=== PATIENT | male | born 1965 | race Caucasian/White ===

== ENCOUNTER 2016-08-01 10:30 | Inpatient (IN) | payer SELFPAY ==
[~2016-08-01] VITALS: Ht 177.8 cm; Wt 68.9 kg
--- NOTE | 2016-08-01 10:55 | PHYS DOC ---
Past Medical History Past Medical History: Alcoholism, Seizure, Schizophrenia, Other Additional Past Medical Histor: seizure w/ withdrawal Past Surgical History: Other Additional Past Surgical Histo: hernia repair Alcohol Use: Heavy Drug Use: None Adult General Chief Complaint Chief Complaint: SEIZURE HPI HPI Patient is a 51 year old male who presents with a seizure while walking to the ER this morning. He states he binge drinks and this morning drank about half a pint of vodka and then decided to walk to the ER. During the course when he is walking the emergency department he had a seizure. He is unsure where he was on this occurred how long it lasted or any other concerns. He states his seizures related to his alcohol use. He also complains of back pain since this been going on for the last week. He is intoxicated and very sleepy at this time having difficulty telling me is full history. He doesn't I any fevers chills nausea vomiting. Review of Systems Review of Systems Constitutional: Denies fever or chills [] Eyes: Denies change in visual acuity, redness, or eye pain [] HENT: Denies nasal congestion or sore throat [] Respiratory: Denies cough or shortness of breath [] Cardiovascular: No additional information not addressed in HPI [] GI: Denies abdominal pain, nausea, vomiting, bloody stools or diarrhea [] : Denies dysuria or hematuria [] Musculoskeletal: Denies any joint pain, positive for back pain. [] Integument: Denies rash or skin lesions [] Neurologic: Denies headache, focal weakness or sensory changes [] Endocrine: Denies polyuria or polydipsia [] Current Medications Current Medications Current Medications Medications (Trade) Dose Ordered Sig/Shira Start Time Stop Time Status Last Admin Dose Admin Sodium Chloride (Iv Sodium Chloride 0.9% 1000ml Bag) 1,000 ml @ 1,000 mls/hr 1X ONCE 08/01/16 12:15 08/01/16 13:14 DC 08/01/16 12:45 1,000 MLS/HR Allergies Allergies Allergies Coded Allergies Type Severity Reaction Last Updated Verified No Known Drug Allergies 09/28/15 No Physical Exam Physical Exam Constitutional: Well developed, well nourished, no acute distress, non-toxic appearence, intoxicated. [] HENT: Normocephalic, atraumatic, bilateral external ears normal, oropharynx moist, no oral exudates, nose normal. [] Eyes: PERRLA, EOMI, conjunctiva normal, no discharge. [] Neck: Normal range of motion, no tenderness, supple, no stridor. [] Cardiovascular:Heart rate regular rhythm, no murmur [] Lungs & Thorax: Bilateral breath sounds clear to auscultation [] Abdomen: Bowel sounds normal, soft, no tenderness, no masses, no pulsatile masses. [] Skin: Warm, dry, no erythema, no rash. [] Back: No tenderness, no CVA tenderness. [] Extremities: No tenderness, no cyanosis, no clubbing, ROM intact, no edema. [] Neurologic: Alert at times and somnolent, normal motor function, normal sensory function, no focal deficits noted. [] Psychologic: Affect normal, judgement normal, mood normal. [] Current Patient Data Vital Signs Vital Signs Date Time Temp Pulse Resp B/P Pulse Ox O2 Delivery O2 Flow Rate FiO2 08/01/16 14:41 80 22 119/68 95 Nasal Cannula 2 08/01/16 10:32 96.5 96.5 Lab Values Laboratory Tests Test 08/01/16 10:50 08/01/16 10:52 08/01/16 11:15 08/01/16 12:35 White Blood Count 7.1x10^3/uL (4.0-11.0) Red Blood Count 5.32x10^6/uL (4.30-5.70) Hemoglobin 16.5g/dL (13.0-17.5) Hematocrit 47.9% (39.0-53.0) Mean Corpuscular Volume 90fL (79-100) Mean Corpuscular Hemoglobin 31pg (25-35) Mean Corpuscular Hemoglobin Concent 34g/dL (31-37) Red Cell Distribution Width 14.8% (11.5-14.5) H Platelet Count 181x10^3/uL (140-400) Neutrophils (%) (Auto) 58% (31-73) Lymphocytes (%) (Auto) 24% (24-48) Monocytes (%) (Auto) 8% (0-9) Eosinophils (%) (Auto) 10% (0-3) H Basophils (%) (Auto) 1% (0-3) Neutrophils # (Auto) 4.1x10^3uL (1.8-7.7) Lymphocytes # (Auto) 1.7x10^3/uL (1.0-4.8) Monocytes # (Auto) 0.6x10^3/uL (0.0-1.1) Eosinophils # (Auto) 0.7x10^3/uL (0.0-0.7) Basophils # (Auto) 0.1x10^3/uL (0.0-0.2) Prothrombin Time 12.5SEC (11.7-14.0) Prothrombin Time INR 1.0 (0.8-1.1) PTT 34SEC (24-38) Sodium Level 138mmol/L (136-145) Potassium Level 4.2mmol/L (3.5-5.1) Chloride Level 100mmol/L (98-107) Carbon Dioxide Level 26mmol/L (21-32) Anion Gap 12 (6-14) Blood Urea Nitrogen 16mg/dL (8-26) Creatinine 1.0mg/dL (0.7-1.3) Estimated GFR (Cockcroft-Gault) 78.5 BUN/Creatinine Ratio 16 (6-20) Glucose Level 87mg/dL (70-99) Calcium Level 8.5mg/dL (8.5-10.1) Total Bilirubin 1.0mg/dL (0.2-1.0) Aspartate Amino Transferase (AST) 90U/L (15-37) H Alanine Aminotransferase (ALT) 57U/L (16-63) Alkaline Phosphatase 90U/L (46-116) Ammonia < 10mcmol/L (11-34) L Total Protein 6.9g/dL (6.4-8.2) Albumin 3.7g/dL (3.4-5.0) Albumin/Globulin Ratio 1.2 (1.0-1.7) Thyroid Stimulating Hormone (TSH) 1.117uIU/mL (0.358-3.74) Salicylates Level 6.5mg/dL (2.8-20.0) Salicylate Last Dose Date Unknown Salicylate Last Dose Time Unknown Acetaminophen Level < 2mcg/ml (10-30) L Acetaminophen Last Dose Date Unknown Acetaminophen Last Dose Time Unknown Ethyl Alcohol Level 322mg/dL (0-10) H Glucose (Fingerstick) 91mg/dL (70-99) Lactic Acid Level 4.0mmol/L (0.4-2.0) *H 3.5mmol/L (0.4-2.0) H Test 08/01/16 14:30 Urine Collection Type Unknown Urine Color Yellow Urine Clarity Clear Urine pH 6.0 Urine Specific [place] <=1.005 Urine Protein Negativemg/dL (NEG-TRACE) Urine Glucose (UA) Negativemg/dL (NEG) Urine Ketones (Stick) Negativemg/dL (NEG) Urine Blood Negative (NEG) Urine Nitrite Negative (NEG) Urine Bilirubin Negative (NEG) Urine Urobilinogen Dipstick 0.2mg/dL (0.2 mg/dL) Urine Leukocyte Esterase Negative (NEG) Urine RBC Occ/HPF (0-2) Urine WBC 1-4/HPF (0-4) Urine Squamous Epithelial Cells Few/LPF Urine Bacteria 0/HPF (0-FEW) Urine Mucus Slight/LPF Urine Opiates Screen Neg (NEG) Urine Methadone Screen Neg (NEG) Urine Barbiturates Neg (NEG) Urine Phencyclidine Screen Neg (NEG) Urine Amphetamine/Methamphetamine Neg (NEG) Urine Benzodiazepines Screen Neg (NEG) Urine Cocaine Screen Neg (NEG) Urine Cannabinoids Screen Pos (NEG) Urine Ethyl Alcohol Pos (NEG) Laboratory Tests 08/01/16 10:50 Laboratory Tests 08/01/16 10:50 EKG EKG [] Radiology/Procedures Radiology/Procedures [] Impressions: Seizure disorder Elevated lactic acid Alcohol abuse Course & Med Decision Making Course & Med Decision Making Pertinent Labs and Imaging studies reviewed. (See chart for details) Patient was seen for unwitnessed seizure and had an elevated lactic acid. Is also intoxicated. He is watch her several hours and is alert now however he does state he does have serious withdrawal and seizures from not drinking. He is being admitted to hospitalist at this time. Dragon Disclaimer Dragon Disclaimer This electronic medical record was generated, in whole or in part, using a voice recognition dictation system. Departure Departure Impression: Primary Impression: Seizure Disposition: 09 ADMITTED INPATIENT Admitting Physician: Akanksha Valiente Condition: STABLE Referrals: NO PCP (PCP) DIXON WARD MD Aug 01, 2016 10:55 MISSY COLEMAN DO Aug 01, 2016 18:24
[2016-08-01] MEDS ORDERED: IV NORMAL SALINE 1000ML BAG 1,000 ML IV ONE ×2 (11:00→12:15)
[2016-08-01 11:09] LABS: BASO # 0.1 x10^3/uL (0.0-0.2); BASO % 1 % (0-3); EOS % 10 % (0-3); HEMATOCRIT 47.9 % (39.0-53.0); HEMOGLOBIN 16.5 g/dL (13.0-17.5); LYMPH # 1.7 x10^3/uL (1.0-4.8); LYMPH % 24 % (24-48); MEAN CORPUSCULAR HEMOGLOBIN 31 pg (25-35); MEAN CORPUSCULAR HGB CONC 34 g/dL (31-37); MEAN CORPUSCULAR VOLUME 90 fL (79-100); MONO % 8 % (0-9); NEUT % 58 % (31-73); PLATELET COUNT 181 x10^3/uL (140-400); RED BLOOD COUNT 5.32 x10^6/uL (4.30-5.70); RED CELL DISTRIBUTION WIDTH 14.8 % (11.5-14.5); WHITE BLOOD COUNT 7.1 x10^3/uL (4.0-11.0)
[2016-08-01 11:11] LABS: CALCIUM 8.5 mg/dL (8.5-10.1); GFR 78.5; POTASSIUM 4.2 mmol/L (3.5-5.1)
[2016-08-01 11:17] LABS: ALBUMIN 3.7 g/dL (3.4-5.0); ALBUMIN/GLOBULIN RATIO 1.2 (1.0-1.7); ETHANOL 322 mg/dL (0-10); TOTAL PROTEIN 6.9 g/dL (6.4-8.2)
[2016-08-01 11:20] LABS: PROTHROMBIN TIME PATIENT 12.5 SEC (11.7-14.0)
--- NOTE | 2016-08-01 11:43 | ACF ---
Admission Forms Criteria SEIZURE Clinical Indications for Admission to Inpatient Care (Place 'X' for any and all applicable criteria): Admission is indicated for seizure and ANY ONE of the following(1)(2)(3)(4)(5): [X]I. Inpatient admission required rather than observation care (Also use Seizure: Observation Care Criteria as appropriate) because of ANY ONE of the following: [ ]a) Altered mental status that is severe or persistent [ ]b) New focal neurologic deficit that is severe or persistent [ ]c) Metabolic disorder (eg, hypoglycemia, hyponatremia) that is severe or persistent [ ]d) Recurrent seizure [ ]e) Outpatient antiseizure regimen cannot be established (eg , patient cannot tolerate medication, initiation requires inpatient care) [ ]f) Need for ongoing intravenous infusion of antiseizure medication [ ]g) Cardiac arrhythmias of immediate concern [ ]h) Cerebral bleeding, hydrocephalus, or vasospasm monitoring (14) [ ]i) Increased intracranial pressure or cerebral edema monitoring (15) [X]j) Other treatment or monitoring requiring inpatient admission [ ]II. Status epilepticus [A] or repetitive seizures not controlled with emergent treatment (6)(8) [ ]III. Brain disorder (eg, tumor, edema, and hydrocephalus) that requiring monitoring or intervention available only at inpatient level of care. [ ]IV. Brain insult (eg, severe trauma, stroke, drug toxicity, or withdrawal) that requires monitoring or intervention available only at inpatient level of care (10)(11) Extended stay beyond goal length of stay may be needed for (22) [ ]a) Complications of status epilepticus [ ]b) Refractory status epilepticus [ ]c) Etiology-specific therapy for conditions such as [employer]ING [employer]PER[employer] infection, head injury,eclampsia, severe metabolic abnormalities, and brain tumor [ ]d) Residual neurologic damage, [ ]e) Initiation of significant change to anticonvulsant treatment [ ]f) Older patients (65 years or older) [ ]g) Patient requiring intubation (eg, to protect airway) The original [employer] content created by [employer] has been revised. The portions of the content which have been revised are identified through the use of italic text or in bold, and [facility] has neither reviewed nor approved the modified material. All other unmodified content is copyright [facility] [employer]. Please see references footnoted in the original [facility] edition 2016 Admission Criteria Met?: Yes JADE WEST Aug 01, 2016 11:43
--- NOTE | 2016-08-01 13:45 | EKG ---
[facility] [address] [place] [address] Test Date: 2016-08-01 Test Time: 10:56:01 Pat Name: ROMELIA ALVAREZ Department: Room: Gender: M Construction Project Manager: : 1965 Requested By: DIXON WARD Order Number: [id number] Reading MD: Graham Abarca Measurements Intervals [place] Rate: 84 P: 62 [place]: 156 QRS: -68 QRSD: 80 T: 67 QT: 388 QTc: 462 Interpretive Statements SINUS RHYTHM LAD NON-SPECIFIC ST/T CHANGES Electronically Signed On 08-06-2016 10:13:48 [employer] by Graham Abarca
[2016-08-01 15:03] LABS: BARBITURATES NEG (NEG); BENZODIAZEPINES NEG (NEG); CANNABINOIDS POS (NEG); COCAINE NEG (NEG); METHADONE NEG (NEG); OPIATES NEG (NEG); PHENCYCLIDINE NEG (NEG)
[2016-08-01 15:11] LABS: BILIRUBIN,URINE NEGATIVE (NEG); ETHANOL, URINE POS (NEG); GLUCOSE,URINE NEGATIVE (NEG); NITRITE,URINE NEGATIVE (NEG); PROTEIN,URINE NEGATIVE (NEG-TRACE); UROBILINOGEN,URINE 0.2 mg/dL (0.2 mg/dL)
[2016-08-01 15:32] LABS: BACTERIA,URINE 0 /HPF (0-FEW); RBC,URINE OCC /HPF (0-2); SQUAMOUS EPITHELIAL CELL,UR FEW /LPF
[2016-08-01] MEDS ORDERED: ONDANSETRON PF 4 MG/2 ML VIAL. IV PRN (16:00)
[2016-08-01] MEDS ORDERED: ZOLPIDEM 5 MG TABLET. PO PRN (16:00)
[2016-08-01] MEDS ORDERED: CHLORDIAZEPOXIDE HCL 25 MG CAPSULE PO PRN (16:00)
[2016-08-01] MEDS ORDERED: MORPHINE SULFATE 2 MG/ML DISP.SYRIN. IV PRN (16:00)
[2016-08-01] MEDS ORDERED: ALPRAZOLAM 0.25 MG TABLET PO PRN (16:00)
--- NOTE | 2016-08-01 16:06 | PDOC1 ---
History and Physical Date of Admission Date of Admission DATE: 08/01/16 TIME: 16:01 Identification/Chief Complaint Chief Complaint sz, pain all over Source Source: Chart review, Patient History of Present Illness History of Present Illness 51 y/o male, heavy etoh-ic, 1/2 gallon vodka everyday, and cigarettes and marijuana, coems in bec of etoh intox and claims sz when he was walking towards the ER,. Hx of SZ seconddary to etoh, only takes celexa at home, HAs been to "[facility]" ([facility] program), and obviously no success, He is asking for pain meds, nicotine patch, ETOH > 300s, rest of labs ok, SInus tachy at ER. GOt 2 IVF boluses Hx bipolatr and schizophrenia per his account Past Medical History Psych: Bipolar, Schizophrenia Renal/: Acute renal failure Past Surgical History Past Surgical History: No pertinent history Family History Family History: Hypertension, Family History Unknown Social History Smoke: 1 pack per day ALCOHOL: heavy Drugs: None, Marijuana Current Problem List Problem List Problems Medical Problems: (1) ETOH abuse Status: Acute (2) Seizure Status: Acute Problems: Current Medications Current Medications Current Medications Sodium Chloride 1,000 ml @ 1,000 mls/hr 1X ONCE IV Last administered on t 11:28; Start 08/01/16 at 11:00; Stop 08/01/16 at 11:59; Status DC Sodium Chloride (Iv Sodium Chloride 0.9% 1000ml Bag) 1,000 ml @ 1,000 mls/hr 1X ONCE IV Last administered on 08/01/16t 12:45; Start 08/01/16 at 12:15; Stop 08/01/16 at 13:14; Status DC Active Scripts Active Reported No Known Medications Prior To Admisstion (Info) Each 1 Each Allergies Allergies: Coded Allergies: No Known Drug Allergies (Unverified , 09/28/15) ROS Review of System pain all over - the rest is limited Physical Exam General: Alert, Oriented X3, Cooperative, No acute distress Lungs: Clear to auscultation Heart: S1S2, RRR, other (sinus tachy) Cardiovascular: S1, S2 Breasts: Normal Abdomen: Normal bowel sounds, Soft, No tenderness, No hepatosplenomegaly, No masses Male Genitals Exam: normal genitalia, normal prostate Rectal Exam: not examined Extremities: No clubbing, No cyanosis, No edema, Normal pulses, No tenderness/ swelling Skin: No rashes, No breakdown, No significant lesion Neuro: Normal gait, Normal speech, Strength at 5/5 X4 ext, Normal tone, Sensation intact, Cranial nerves 3-12 NL, Reflexes 2+ Psych/Mental Status: Mental status NL, Mood NL Vitals Vitals Vital Signs Date Time Temp Pulse Resp B/P Pulse Ox O2 Delivery O2 Flow Rate FiO2 08/01/16 15:03 74 15 125/64 95 Nasal Cannula 2 08/01/16 10:32 96.5 96.5 Labs Labs Laboratory Tests Test 08/01/16 10:50 08/01/16 10:52 08/01/16 11:15 08/01/16 12:35 White Blood Count 7.1x10^3/uL (4.0-11.0) Red Blood Count 5.32x10^6/uL (4.30-5.70) Hemoglobin 16.5g/dL (13.0-17.5) Hematocrit 47.9% (39.0-53.0) Mean Corpuscular Volume 90fL (79-100) Mean Corpuscular Hemoglobin 31pg (25-35) Mean Corpuscular Hemoglobin Concent 34g/dL (31-37) Red Cell Distribution Width 14.8% (11.5-14.5) Platelet Count 181x10^3/uL (140-400) Neutrophils (%) (Auto) 58% (31-73) Lymphocytes (%) (Auto) 24% (24-48) Monocytes (%) (Auto) 8% (0-9) Eosinophils (%) (Auto) 10% (0-3) Basophils (%) (Auto) 1% (0-3) Neutrophils # (Auto) 4.1x10^3uL (1.8-7.7) Lymphocytes # (Auto) 1.7x10^3/uL (1.0-4.8) Monocytes # (Auto) 0.6x10^3/uL (0.0-1.1) Eosinophils # (Auto) 0.7x10^3/uL (0.0-0.7) Basophils # (Auto) 0.1x10^3/uL (0.0-0.2) Prothrombin Time 12.5SEC (11.7-14.0) Prothromb Time International Ratio 1.0 (0.8-1.1) Activated Partial Thromboplast Time 34SEC (24-38) Sodium Level 138mmol/L (136-145) Potassium Level 4.2mmol/L (3.5-5.1) Chloride Level 100mmol/L (98-107) Carbon Dioxide Level 26mmol/L (21-32) Anion Gap 12 (6-14) Blood Urea Nitrogen 16mg/dL (8-26) Creatinine 1.0mg/dL (0.7-1.3) Estimated GFR (Cockcroft-Gault) 78.5 BUN/Creatinine Ratio 16 (6-20) Glucose Level 87mg/dL (70-99) Calcium Level 8.5mg/dL (8.5-10.1) Total Bilirubin 1.0mg/dL (0.2-1.0) Aspartate Amino Transf (AST/SGOT) 90U/L (15-37) Alanine Aminotransferase (ALT/SGPT) 57U/L (16-63) Alkaline Phosphatase 90U/L (46-116) Ammonia < 10mcmol/L (11-34) Total Protein 6.9g/dL (6.4-8.2) Albumin 3.7g/dL (3.4-5.0) Albumin/Globulin Ratio 1.2 (1.0-1.7) Thyroid Stimulating Hormone (TSH) 1.117uIU/mL (0.358-3.74) Salicylates Level 6.5mg/dL (2.8-20.0) Salicylate Last Dose Date Unknown Salicylate Last Dose Time Unknown Acetaminophen Level < 2mcg/ml (10-30) Acetaminophen Last Dose Date Unknown Acetaminophen Last Dose Time Unknown Ethyl Alcohol Level 322mg/dL (0-10) Glucose (Fingerstick) 91mg/dL (70-99) Lactic Acid Level 4.0mmol/L (0.4-2.0) 3.5mmol/L (0.4-2.0) Test 08/01/16 14:30 Urine Collection Type Unknown Urine Color Yellow Urine Clarity Clear Urine pH 6.0 Urine Specific [place] <=1.005 Urine Protein Negativemg/dL (NEG-TRACE) Urine Glucose (UA) Negativemg/dL (NEG) Urine Ketones (Stick) Negativemg/dL (NEG) Urine Blood Negative (NEG) Urine Nitrite Negative (NEG) Urine Bilirubin Negative (NEG) Urine Urobilinogen Dipstick 0.2mg/dL (0.2 mg/dL) Urine Leukocyte Esterase Negative (NEG) Urine RBC Occ/HPF (0-2) Urine WBC 1-4/HPF (0-4) Urine Squamous Epithelial Cells Few/LPF Urine Bacteria 0/HPF (0-FEW) Urine Mucus Slight/LPF Urine Opiates Screen Neg (NEG) Urine Methadone Screen Neg (NEG) Urine Barbiturates Neg (NEG) Urine Phencyclidine Screen Neg (NEG) Urine Amphetamine/Methamphetamine Neg (NEG) Urine Benzodiazepines Screen Neg (NEG) Urine Cocaine Screen Neg (NEG) Urine Cannabinoids Screen Pos (NEG) Urine Ethyl Alcohol Pos (NEG) Laboratory Tests Test 08/01/16 10:50 08/01/16 10:52 08/01/16 11:15 08/01/16 12:35 White Blood Count 7.1x10^3/uL (4.0-11.0) Red Blood Count 5.32x10^6/uL (4.30-5.70) Hemoglobin 16.5g/dL (13.0-17.5) Hematocrit 47.9% (39.0-53.0) Mean Corpuscular Volume 90fL (79-100) Mean Corpuscular Hemoglobin 31pg (25-35) Mean Corpuscular Hemoglobin Concent 34g/dL (31-37) Red Cell Distribution Width 14.8% (11.5-14.5) Platelet Count 181x10^3/uL (140-400) Neutrophils (%) (Auto) 58% (31-73) Lymphocytes (%) (Auto) 24% (24-48) Monocytes (%) (Auto) 8% (0-9) Eosinophils (%) (Auto) 10% (0-3) Basophils (%) (Auto) 1% (0-3) Neutrophils # (Auto) 4.1x10^3uL (1.8-7.7) Lymphocytes # (Auto) 1.7x10^3/uL (1.0-4.8) Monocytes # (Auto) 0.6x10^3/uL (0.0-1.1) Eosinophils # (Auto) 0.7x10^3/uL (0.0-0.7) Basophils # (Auto) 0.1x10^3/uL (0.0-0.2) Prothrombin Time 12.5SEC (11.7-14.0) Prothromb Time International Ratio 1.0 (0.8-1.1) Activated Partial Thromboplast Time 34SEC (24-38) Sodium Level 138mmol/L (136-145) Potassium Level 4.2mmol/L (3.5-5.1) Chloride Level 100mmol/L (98-107) Carbon Dioxide Level 26mmol/L (21-32) Anion Gap 12 (6-14) Blood Urea Nitrogen 16mg/dL (8-26) Creatinine 1.0mg/dL (0.7-1.3) Estimated GFR (Cockcroft-Gault) 78.5 BUN/Creatinine Ratio 16 (6-20) Glucose Level 87mg/dL (70-99) Calcium Level 8.5mg/dL (8.5-10.1) Total Bilirubin 1.0mg/dL (0.2-1.0) Aspartate Amino Transf (AST/SGOT) 90U/L (15-37) Alanine Aminotransferase (ALT/SGPT) 57U/L (16-63) Alkaline Phosphatase 90U/L (46-116) Ammonia < 10mcmol/L (11-34) Total Protein 6.9g/dL (6.4-8.2) Albumin 3.7g/dL (3.4-5.0) Albumin/Globulin Ratio 1.2 (1.0-1.7) Thyroid Stimulating Hormone (TSH) 1.117uIU/mL (0.358-3.74) Salicylates Level 6.5mg/dL (2.8-20.0) Salicylate Last Dose Date Unknown Salicylate Last Dose Time Unknown Acetaminophen Level < 2mcg/ml (10-30) Acetaminophen Last Dose Date Unknown Acetaminophen Last Dose Time Unknown Ethyl Alcohol Level 322mg/dL (0-10) Glucose (Fingerstick) 91mg/dL (70-99) Lactic Acid Level 4.0mmol/L (0.4-2.0) 3.5mmol/L (0.4-2.0) Test 08/01/16 14:30 Urine Collection Type Unknown Urine Color Yellow Urine Clarity Clear Urine pH 6.0 Urine Specific [place] <=1.005 Urine Protein Negativemg/dL (NEG-TRACE) Urine Glucose (UA) Negativemg/dL (NEG) Urine Ketones (Stick) Negativemg/dL (NEG) Urine Blood Negative (NEG) Urine Nitrite Negative (NEG) Urine Bilirubin Negative (NEG) Urine Urobilinogen Dipstick 0.2mg/dL (0.2 mg/dL) Urine Leukocyte Esterase Negative (NEG) Urine RBC Occ/HPF (0-2) Urine WBC 1-4/HPF (0-4) Urine Squamous Epithelial Cells Few/LPF Urine Bacteria 0/HPF (0-FEW) Urine Mucus Slight/LPF Urine Opiates Screen Neg (NEG) Urine Methadone Screen Neg (NEG) Urine Barbiturates Neg (NEG) Urine Phencyclidine Screen Neg (NEG) Urine Amphetamine/Methamphetamine Neg (NEG) Urine Benzodiazepines Screen Neg (NEG) Urine Cocaine Screen Neg (NEG) Urine Cannabinoids Screen Pos (NEG) Urine Ethyl Alcohol Pos (NEG) VTE Prophylaxis Ordered VTE Prophylaxis Devices: Yes VTE Pharmacological Prophylaxi: Yes Assessment/Plan Assessment/Plan 1. Alcohol Intoxication 2. SZ sec to etoh withdrawal vs consumption 3 Bipolar and Schizophremia 4. SInus tachy PLAn: LActate is 4 -- SIRS EToH> 300 BAnana bag , CIWA, librium, benzos AMbien prn \\nicotine patch SW - RADAC Supprotive care PT/OT - check gait when more sober ANASTACIO MAIN MD Aug 01, 2016 16:06
[2016-08-01] MEDS: MVI, ADULT NO.4 WITH VIT K 10 ML, FOLIC ACID 1 MG, THIAMINE 100 MG in IV DEXTROSE 5 %-0... IV SCH ×4 (16:19)
[2016-08-01] MEDS ORDERED: PROMETHAZINE 6.25 MG in IV NORMAL SALINE 50ML 50 ML IV PRN (16:30)
[2016-08-01 17:20] VITALS: BP 114/81
[2016-08-01] MEDS: NICOTINE 21MG PATCH. TD SCH (17:31)
[2016-08-01] MEDS: LORAZEPAM 2 MG/ML VIAL IV PRN ×2 (17:32→21:14)
[2016-08-01] MEDS ORDERED: QUET50TA5 PO (17:51)
[2016-08-01 19:00] VITALS: BP 113/82
[2016-08-01] MEDS: HYDROCODONE/APAP 5/325MG TABLET. PO PRN (19:37)
[2016-08-01] MEDS ORDERED: FLU VACC QUAD 2016-17 (36MOS+)/PF 0.5 ML SYRINGE. VAX IM ONE (20:00)
[2016-08-01] MEDS: OXYCODONE/APAP 10/325 TABLET. PO PRN (21:14)
[2016-08-01 23:00] VITALS: BP 131/82
[2016-08-02] MEDS: OXYCODONE/APAP 10/325 TABLET. PO PRN ×2 (00:52→08:54)
[2016-08-02] MEDS: LORAZEPAM 2 MG/ML VIAL IV PRN ×4 (01:02→17:54)
[2016-08-02 02:47] VITALS: BP 121/90
[2016-08-02 06:35] LABS: BASO # 0.1 x10^3/uL (0.0-0.2); BASO % 1 % (0-3); EOS % 13 % (0-3); HEMOGLOBIN 15.7 g/dL (13.0-17.5); LYMPH # 1.5 x10^3/uL (1.0-4.8); LYMPH % 24 % (24-48); MEAN CORPUSCULAR HEMOGLOBIN 31 pg (25-35); MEAN CORPUSCULAR HGB CONC 34 g/dL (31-37); MEAN CORPUSCULAR VOLUME 92 fL (79-100); MONO % 6 % (0-9); NEUT % 57 % (31-73); PLATELET COUNT 153 x10^3/uL (140-400); RED CELL DISTRIBUTION WIDTH 14.5 % (11.5-14.5); WHITE BLOOD COUNT 6.2 x10^3/uL (4.0-11.0)
[2016-08-02 07:00] VITALS: BP 136/90
[2016-08-02 08:25] LABS: GFR 78.5; POTASSIUM 4.2 mmol/L (3.5-5.1)
[2016-08-02] MEDS: NICOTINE 21MG PATCH. TD SCH (08:52)
[2016-08-02] MEDS: CITALOPRAM 20 MG TABLET. PO SCH (08:54)
[2016-08-02 11:00] VITALS: BP 136/88
[2016-08-02] MEDS: MVI, ADULT NO.4 WITH VIT K 10 ML, FOLIC ACID 1 MG, THIAMINE 100 MG in IV DEXTROSE 5 %-0... IV SCH ×4 (11:04)
--- NOTE | 2016-08-02 14:07 | PDOC ---
PROGRESS NOTES Chief Complaint Chief Complaint 1. Alcohol Intoxication 2. SZ sec to etoh withdrawal vs consumption 3 Bipolar and Schizophremia 4. SInus tachy, withdrawl symptoms, acute 5. Back pain History of Present Illness History of Present Illness calm back pain and anxiety, some distress Vitals Vitals Vital Signs Date Time Temp Pulse Resp B/P Pulse Ox O2 Delivery O2 Flow Rate FiO2 08/02/16 11:00 97.0 89 22 136/88 97 Room Air 97.0 08/01/16 16:03 2 Physical Exam General: Alert, Oriented X3, Cooperative, No acute distress Heart: Regular rate, No murmurs Abdomen: Normal bowel sounds, Soft, No tenderness, No hepatosplenomegaly, No masses Extremities: No clubbing, No cyanosis, No edema, Normal pulses, No tenderness/ swelling Skin: No rashes, No breakdown, No significant lesion Labs LABS Laboratory Tests Test 08/01/16 14:30 08/02/16 06:15 Urine Collection Type Unknown Urine Color Yellow Urine Clarity Clear Urine pH 6.0 Urine Specific Warren <=1.005 Urine Protein Negativemg/dL (NEG-TRACE) Urine Glucose (UA) Negativemg/dL (NEG) Urine Ketones (Stick) Negativemg/dL (NEG) Urine Blood Negative (NEG) Urine Nitrite Negative (NEG) Urine Bilirubin Negative (NEG) Urine Urobilinogen Dipstick 0.2mg/dL (0.2 mg/dL) Urine Leukocyte Esterase Negative (NEG) Urine RBC Occ/HPF (0-2) Urine WBC 1-4/HPF (0-4) Urine Squamous Epithelial Cells Few/LPF Urine Bacteria 0/HPF (0-FEW) Urine Mucus Slight/LPF Urine Opiates Screen Neg (NEG) Urine Methadone Screen Neg (NEG) Urine Barbiturates Neg (NEG) Urine Phencyclidine Screen Neg (NEG) Urine Amphetamine/Methamphetamine Neg (NEG) Urine Benzodiazepines Screen Neg (NEG) Urine Cocaine Screen Neg (NEG) Urine Cannabinoids Screen Pos (NEG) Urine Ethyl Alcohol Pos (NEG) White Blood Count 6.2x10^3/uL (4.0-11.0) Red Blood Count 5.10x10^6/uL (4.30-5.70) Hemoglobin 15.7g/dL (13.0-17.5) Hematocrit 47.0% (39.0-53.0) Mean Corpuscular Volume 92fL (79-100) Mean Corpuscular Hemoglobin 31pg (25-35) Mean Corpuscular Hemoglobin Concent 34g/dL (31-37) Red Cell Distribution Width 14.5% (11.5-14.5) Platelet Count 153x10^3/uL (140-400) Neutrophils (%) (Auto) 57% (31-73) Lymphocytes (%) (Auto) 24% (24-48) Monocytes (%) (Auto) 6% (0-9) Eosinophils (%) (Auto) 13% (0-3) Basophils (%) (Auto) 1% (0-3) Neutrophils # (Auto) 3.5x10^3uL (1.8-7.7) Lymphocytes # (Auto) 1.5x10^3/uL (1.0-4.8) Monocytes # (Auto) 0.4x10^3/uL (0.0-1.1) Eosinophils # (Auto) 0.8x10^3/uL (0.0-0.7) Basophils # (Auto) 0.1x10^3/uL (0.0-0.2) Sodium Level 134mmol/L (136-145) Potassium Level 4.2mmol/L (3.5-5.1) Chloride Level 100mmol/L (98-107) Carbon Dioxide Level 28mmol/L (21-32) Anion Gap 6 (6-14) Blood Urea Nitrogen 18mg/dL (8-26) Creatinine 1.0mg/dL (0.7-1.3) Estimated GFR (Cockcroft-Gault) 78.5 Glucose Level 81mg/dL (70-99) Calcium Level 8.0mg/dL (8.5-10.1) Review of Systems Review of Systems no n.v.d Assessment and Plan Assessmemt and Plan Problems Medical Problems: (1) ETOH abuse Status: Acute (2) Seizure Status: Acute Problems: Comment Review of Relevant I have reviewed the following items buster (where applicable) has been applied. Labs Laboratory Tests Test 08/01/16 10:50 08/01/16 10:52 08/01/16 11:15 08/01/16 12:35 White Blood Count 7.1x10^3/uL (4.0-11.0) Red Blood Count 5.32x10^6/uL (4.30-5.70) Hemoglobin 16.5g/dL (13.0-17.5) Hematocrit 47.9% (39.0-53.0) Mean Corpuscular Volume 90fL (79-100) Mean Corpuscular Hemoglobin 31pg (25-35) Mean Corpuscular Hemoglobin Concent 34g/dL (31-37) Red Cell Distribution Width 14.8% (11.5-14.5) Platelet Count 181x10^3/uL (140-400) Neutrophils (%) (Auto) 58% (31-73) Lymphocytes (%) (Auto) 24% (24-48) Monocytes (%) (Auto) 8% (0-9) Eosinophils (%) (Auto) 10% (0-3) Basophils (%) (Auto) 1% (0-3) Neutrophils # (Auto) 4.1x10^3uL (1.8-7.7) Lymphocytes # (Auto) 1.7x10^3/uL (1.0-4.8) Monocytes # (Auto) 0.6x10^3/uL (0.0-1.1) Eosinophils # (Auto) 0.7x10^3/uL (0.0-0.7) Basophils # (Auto) 0.1x10^3/uL (0.0-0.2) Prothrombin Time 12.5SEC (11.7-14.0) Prothromb Time International Ratio 1.0 (0.8-1.1) Activated Partial Thromboplast Time 34SEC (24-38) Sodium Level 138mmol/L (136-145) Potassium Level 4.2mmol/L (3.5-5.1) Chloride Level 100mmol/L (98-107) Carbon Dioxide Level 26mmol/L (21-32) Anion Gap 12 (6-14) Blood Urea Nitrogen 16mg/dL (8-26) Creatinine 1.0mg/dL (0.7-1.3) Estimated GFR (Cockcroft-Gault) 78.5 BUN/Creatinine Ratio 16 (6-20) Glucose Level 87mg/dL (70-99) Calcium Level 8.5mg/dL (8.5-10.1) Total Bilirubin 1.0mg/dL (0.2-1.0) Aspartate Amino Transf (AST/SGOT) 90U/L (15-37) Alanine Aminotransferase (ALT/SGPT) 57U/L (16-63) Alkaline Phosphatase 90U/L (46-116) Ammonia < 10mcmol/L (11-34) Total Protein 6.9g/dL (6.4-8.2) Albumin 3.7g/dL (3.4-5.0) Albumin/Globulin Ratio 1.2 (1.0-1.7) Thyroid Stimulating Hormone (TSH) 1.117uIU/mL (0.358-3.74) Salicylates Level 6.5mg/dL (2.8-20.0) Salicylate Last Dose Date Unknown Salicylate Last Dose Time Unknown Acetaminophen Level < 2mcg/ml (10-30) Acetaminophen Last Dose Date Unknown Acetaminophen Last Dose Time Unknown Ethyl Alcohol Level 322mg/dL (0-10) Glucose (Fingerstick) 91mg/dL (70-99) Lactic Acid Level 4.0mmol/L (0.4-2.0) 3.5mmol/L (0.4-2.0) Test 08/01/16 14:30 08/02/16 06:15 Urine Collection Type Unknown Urine Color Yellow Urine Clarity Clear Urine pH 6.0 Urine Specific Warren <=1.005 Urine Protein Negativemg/dL (NEG-TRACE) Urine Glucose (UA) Negativemg/dL (NEG) Urine Ketones (Stick) Negativemg/dL (NEG) Urine Blood Negative (NEG) Urine Nitrite Negative (NEG) Urine Bilirubin Negative (NEG) Urine Urobilinogen Dipstick 0.2mg/dL (0.2 mg/dL) Urine Leukocyte Esterase Negative (NEG) Urine RBC Occ/HPF (0-2) Urine WBC 1-4/HPF (0-4) Urine Squamous Epithelial Cells Few/LPF Urine Bacteria 0/HPF (0-FEW) Urine Mucus Slight/LPF Urine Opiates Screen Neg (NEG) Urine Methadone Screen Neg (NEG) Urine Barbiturates Neg (NEG) Urine Phencyclidine Screen Neg (NEG) Urine Amphetamine/Methamphetamine Neg (NEG) Urine Benzodiazepines Screen Neg (NEG) Urine Cocaine Screen Neg (NEG) Urine Cannabinoids Screen Pos (NEG) Urine Ethyl Alcohol Pos (NEG) White Blood Count 6.2x10^3/uL (4.0-11.0) Red Blood Count 5.10x10^6/uL (4.30-5.70) Hemoglobin 15.7g/dL (13.0-17.5) Hematocrit 47.0% (39.0-53.0) Mean Corpuscular Volume 92fL (79-100) Mean Corpuscular Hemoglobin 31pg (25-35) Mean Corpuscular Hemoglobin Concent 34g/dL (31-37) Red Cell Distribution Width 14.5% (11.5-14.5) Platelet Count 153x10^3/uL (140-400) Neutrophils (%) (Auto) 57% (31-73) Lymphocytes (%) (Auto) 24% (24-48) Monocytes (%) (Auto) 6% (0-9) Eosinophils (%) (Auto) 13% (0-3) Basophils (%) (Auto) 1% (0-3) Neutrophils # (Auto) 3.5x10^3uL (1.8-7.7) Lymphocytes # (Auto) 1.5x10^3/uL (1.0-4.8) Monocytes # (Auto) 0.4x10^3/uL (0.0-1.1) Eosinophils # (Auto) 0.8x10^3/uL (0.0-0.7) Basophils # (Auto) 0.1x10^3/uL (0.0-0.2) Sodium Level 134mmol/L (136-145) Potassium Level 4.2mmol/L (3.5-5.1) Chloride Level 100mmol/L (98-107) Carbon Dioxide Level 28mmol/L (21-32) Anion Gap 6 (6-14) Blood Urea Nitrogen 18mg/dL (8-26) Creatinine 1.0mg/dL (0.7-1.3) Estimated GFR (Cockcroft-Gault) 78.5 Glucose Level 81mg/dL (70-99) Calcium Level 8.0mg/dL (8.5-10.1) Laboratory Tests Test 08/01/16 14:30 08/02/16 06:15 Urine Collection Type Unknown Urine Color Yellow Urine Clarity Clear Urine pH 6.0 Urine Specific Warren <=1.005 Urine Protein Negativemg/dL (NEG-TRACE) Urine Glucose (UA) Negativemg/dL (NEG) Urine Ketones (Stick) Negativemg/dL (NEG) Urine Blood Negative (NEG) Urine Nitrite Negative (NEG) Urine Bilirubin Negative (NEG) Urine Urobilinogen Dipstick 0.2mg/dL (0.2 mg/dL) Urine Leukocyte Esterase Negative (NEG) Urine RBC Occ/HPF (0-2) Urine WBC 1-4/HPF (0-4) Urine Squamous Epithelial Cells Few/LPF Urine Bacteria 0/HPF (0-FEW) Urine Mucus Slight/LPF Urine Opiates Screen Neg (NEG) Urine Methadone Screen Neg (NEG) Urine Barbiturates Neg (NEG) Urine Phencyclidine Screen Neg (NEG) Urine Amphetamine/Methamphetamine Neg (NEG) Urine Benzodiazepines Screen Neg (NEG) Urine Cocaine Screen Neg (NEG) Urine Cannabinoids Screen Pos (NEG) Urine Ethyl Alcohol Pos (NEG) White Blood Count 6.2x10^3/uL (4.0-11.0) Red Blood Count 5.10x10^6/uL (4.30-5.70) Hemoglobin 15.7g/dL (13.0-17.5) Hematocrit 47.0% (39.0-53.0) Mean Corpuscular Volume 92fL (79-100) Mean Corpuscular Hemoglobin 31pg (25-35) Mean Corpuscular Hemoglobin Concent 34g/dL (31-37) Red Cell Distribution Width 14.5% (11.5-14.5) Platelet Count 153x10^3/uL (140-400) Neutrophils (%) (Auto) 57% (31-73) Lymphocytes (%) (Auto) 24% (24-48) Monocytes (%) (Auto) 6% (0-9) Eosinophils (%) (Auto) 13% (0-3) Basophils (%) (Auto) 1% (0-3) Neutrophils # (Auto) 3.5x10^3uL (1.8-7.7) Lymphocytes # (Auto) 1.5x10^3/uL (1.0-4.8) Monocytes # (Auto) 0.4x10^3/uL (0.0-1.1) Eosinophils # (Auto) 0.8x10^3/uL (0.0-0.7) Basophils # (Auto) 0.1x10^3/uL (0.0-0.2) Sodium Level 134mmol/L (136-145) Potassium Level 4.2mmol/L (3.5-5.1) Chloride Level 100mmol/L (98-107) Carbon Dioxide Level 28mmol/L (21-32) Anion Gap 6 (6-14) Blood Urea Nitrogen 18mg/dL (8-26) Creatinine 1.0mg/dL (0.7-1.3) Estimated GFR (Cockcroft-Gault) 78.5 Glucose Level 81mg/dL (70-99) Calcium Level 8.0mg/dL (8.5-10.1) Medications Current Medications Sodium Chloride 1,000 ml @ 1,000 mls/hr 1X ONCE IV Last administered on 11:28; Start 08/01/16 at 11:00; Stop 08/01/16 at 11:59; Status DC Sodium Chloride 1,000 ml @ 1,000 mls/hr 1X ONCE IV Last administered on 12:45; Start 08/01/16 at 12:15; Stop 08/01/16 at 13:14; Status DC Multivitamins/ Minerals/Folic Acid/Thiamine HCl/ Dextrose/Sodium Chloride ( Infuvite Adult/ Iv D5% - 1/2 NS) 1,011.2 ml @ 100 mls/ hr DAILY IV Last administered on 08/02/16 11:04; Start 08/01/16 at 17:00 Chlordiazepoxide (Librium) 25 mg PRN QID PRN PO etoh withdraal; Start 08/01/16 at 16:00 Alprazolam (Xanax) 0.25 mg PRN TID PRN PO nerves; Start 08/01/16 at 16:00 Acetaminophen/ Hydrocodone Bitart (Lortab 5/325) 1 tab PRN QID PRN PO pain Last administered on 08/01/16 19:37; Start 08/01/16 at 16:00 Morphine Sulfate 2 mg PRN Q2HRS PRN IV pain; Start 08/01/16 at 16:00 Zolpidem Tartrate (Ambien) 5 mg PRN QHS PRN PO INSOMNIA; Start 08/01/16 at 16: 00 Ondansetron HCl (Zofran) 4 mg PRN Q6HRS PRN IV NAUSEA/VOMITING Last administered on 08/02/16 08:55; Start 08/01/16 at 16:00 Lorazepam (Ativan) 2 mg PRN Q4HRS PRN IV ANXIETY / AGITATION Last administered on 08/02/16 08:56; Start 08/01/16 at 16:15 Citalopram Hydrobromide (Celexa) 20 mg DAILY PO Last administered on 08/02/16 08:54; Start 08/02/16 at 09:00 Nicotine (Nicoderm Cq 21mg) 1 patch DAILY TD Last administered on 08/02/16 08: 52; Start 08/01/16 at 16:30 Oxycodone/ Acetaminophen 1 tab 1 tab PRN Q4HRS PRN PO pain Last administered on 08/02/16 08:54; Start 08/01/16 at 16:30 Promethazine HCl/ Sodium Chloride (Phenergan/Iv Sodium Chloride 0.9% 50ml) 50.25 ml @ 150.75 mls/ hr PRN Q6HRS PRN IV NAUSEA/VOMITING; Start 08/01/16 at 16:30 Influenza Virus Vaccine Quadrival (Fluarix Quad [id number] Syringe) 0.5 ml ONCE ONCE VAX IM ; Start 08/01/16 at 20:00; Stop 08/01/16 at 20:01; Status DC Active Scripts Active Reported Seroquel (Quetiapine Fumarate) 50 Mg Tablet 1 Tab PO QHS No Known Medications Prior To Admisstion (Info) Each 1 Each Vitals/I & O Vital Sign - Last 24 Hours 08/01/16 08/01/16 08/01/16 08/01/16 14:41 15:03 15:33 16:03 Pulse 80 74 88 78 Resp 22 15 22 16 B/P 119/68 125/64 119/78 132/70 Pulse Ox 95 95 96 94 O2 Delivery Nasal Cannula Nasal Cannula Nasal Cannula Nasal Cannula O2 Flow Rate 2 2 2 2 08/01/16 08/01/16 08/01/16 08/01/16 16:33 17:03 17:20 17:20 Temp 98.2 98.2 Pulse 74 89 103 Resp 16 20 B/P 133/73 145/71 114/81 Pulse Ox 95 97 94 O2 Delivery Room Air Room Air Room Air Room Air 08/01/16 08/01/16 08/01/16 08/01/16 19:00 19:37 21:12 21:14 Temp 98.8 98.8 Pulse 109 Resp 18 20 20 B/P 113/82 Pulse Ox 95 O2 Delivery Room Air Room Air Room Air Room Air 08/01/16 08/02/16 08/02/16 08/02/16 23:00 00:52 02:47 07:00 Temp 98.8 97.6 97.4 98.8 97.6 97.4 Pulse 93 81 81 Resp 18 18 20 B/P 131/82 121/90 136/90 Pulse Ox 100 94 96 O2 Delivery Room Air Room Air Room Air Room Air 08/02/16 08/02/16 08/02/16 08:54 09:54 11:00 Temp 97.0 97.0 Pulse 89 Resp 22 B/P 136/88 Pulse Ox 97 O2 Delivery Room Air Room Air Room Air Intake and Output 08/01/16 08/01/16 08/02/16 15:00 23:00 07:00 Intake Total 2000 ml 240 ml 120 ml Output Total 700 ml 1300 ml Balance 2000 ml -460 ml -1180 ml CHEYANNE GR MD Aug 02, 2016 14:07
[2016-08-02] MEDS ORDERED: LORAZEPAM 2 MG/ML VIAL IV PRN (14:15)
[2016-08-02] MEDS: HYDROCODONE/APAP 5/325MG TABLET. PO PRN ×2 (14:19→20:43)
[2016-08-02] MEDS: LIDOCAINE (700MG/PATCH) PATCH. TD SCH (14:38)
[2016-08-02 15:00] VITALS: BP 128/80
[2016-08-02 19:00] VITALS: BP 118/84
[2016-08-02] MEDS: LORAZEPAM 1 MG TABLET. PO SCH (20:43)
[2016-08-02 23:00] VITALS: BP 121/83
[2016-08-03 03:00] VITALS: BP 121/80
[2016-08-03 07:00] VITALS: BP 130/76
[2016-08-03] MEDS: MVI, ADULT NO.4 WITH VIT K 10 ML, FOLIC ACID 1 MG, THIAMINE 100 MG in IV DEXTROSE 5 %-0... IV SCH ×4 (08:49)
[2016-08-03] MEDS: LIDOCAINE (700MG/PATCH) PATCH. TD SCH (08:49)
[2016-08-03] MEDS: LORAZEPAM 1 MG TABLET. PO SCH ×2 (08:50→21:17)
[2016-08-03] MEDS: CITALOPRAM 20 MG TABLET. PO SCH (08:51)
[2016-08-03] MEDS: NICOTINE 21MG PATCH. TD SCH (08:51)
[2016-08-03] MEDS ORDERED: DICLOFENAC SODIUM 1% TOPICAL GEL 100GM TUBE. TP SCH ×2 (09:00)
[2016-08-03 11:00] VITALS: BP 125/86
[2016-08-03] MEDS: OXYCODONE/APAP 10/325 TABLET. PO PRN ×2 (11:59→20:05)
[2016-08-03] MEDS: LORAZEPAM 2 MG/ML VIAL IV PRN (14:26)
[2016-08-03 15:00] VITALS: BP 113/78
--- NOTE | 2016-08-03 16:23 | PDOC ---
PROGRESS NOTES Chief Complaint Chief Complaint 1. Alcohol Intoxication on admit 2. SZ sec to etoh withdrawal vs consumption 3 Bipolar and Schizophremia 4. SInus tachy, withdrawl symptoms, acute 5. Back pain History of Present Illness History of Present Illness calm back pain and anxiety, some distress still is tremulous has asterixis still, does not feel steady to walk or DC check PT tomorrow, needs more ativan, banana bag again today Vitals Vitals Vital Signs Date Time Temp Pulse Resp B/P Pulse Ox O2 Delivery O2 Flow Rate FiO2 08/03/16 15:00 97.7 81 18 113/78 95 Room Air 97.7 Physical Exam General: Alert, Oriented X3, Cooperative, No acute distress Heart: Regular rate, No murmurs Abdomen: Normal bowel sounds, Soft, No tenderness, No hepatosplenomegaly, No masses Extremities: No clubbing, No cyanosis, No edema, Normal pulses, No tenderness/ swelling Skin: No rashes, No breakdown, No significant lesion Review of Systems Review of Systems weakness tremor insomnia, Assessment and Plan Assessmemt and Plan also restart HS seroquel Problems Medical Problems: (1) ETOH abuse Status: Acute (2) Seizure Status: Acute Problems: Comment Review of Relevant I have reviewed the following items buster (where applicable) has been applied. Labs Laboratory Tests Test 08/02/16 06:15 White Blood Count 6.2x10^3/uL (4.0-11.0) Red Blood Count 5.10x10^6/uL (4.30-5.70) Hemoglobin 15.7g/dL (13.0-17.5) Hematocrit 47.0% (39.0-53.0) Mean Corpuscular Volume 92fL (79-100) Mean Corpuscular Hemoglobin 31pg (25-35) Mean Corpuscular Hemoglobin Concent 34g/dL (31-37) Red Cell Distribution Width 14.5% (11.5-14.5) Platelet Count 153x10^3/uL (140-400) Neutrophils (%) (Auto) 57% (31-73) Lymphocytes (%) (Auto) 24% (24-48) Monocytes (%) (Auto) 6% (0-9) Eosinophils (%) (Auto) 13% (0-3) Basophils (%) (Auto) 1% (0-3) Neutrophils # (Auto) 3.5x10^3uL (1.8-7.7) Lymphocytes # (Auto) 1.5x10^3/uL (1.0-4.8) Monocytes # (Auto) 0.4x10^3/uL (0.0-1.1) Eosinophils # (Auto) 0.8x10^3/uL (0.0-0.7) Basophils # (Auto) 0.1x10^3/uL (0.0-0.2) Sodium Level 134mmol/L (136-145) Potassium Level 4.2mmol/L (3.5-5.1) Chloride Level 100mmol/L (98-107) Carbon Dioxide Level 28mmol/L (21-32) Anion Gap 6 (6-14) Blood Urea Nitrogen 18mg/dL (8-26) Creatinine 1.0mg/dL (0.7-1.3) Estimated GFR (Cockcroft-Gault) 78.5 Glucose Level 81mg/dL (70-99) Calcium Level 8.0mg/dL (8.5-10.1) Medications Current Medications Sodium Chloride 1,000 ml @ 1,000 mls/hr 1X ONCE IV Last administered on 11:28; Start 08/01/16 at 11:00; Stop 08/01/16 at 11:59; Status DC Sodium Chloride 1,000 ml @ 1,000 mls/hr 1X ONCE IV Last administered on 12:45; Start 08/01/16 at 12:15; Stop 08/01/16 at 13:14; Status DC Multivitamins/ Minerals/Folic Acid/Thiamine HCl/ Dextrose/Sodium Chloride ( Infuvite Adult/ Iv D5% - 1/2 NS) 1,011.2 ml @ 100 mls/ hr DAILY IV Last administered on 08/03/16 08:49; Start 08/01/16 at 17:00 Chlordiazepoxide (Librium) 25 mg PRN QID PRN PO etoh withdraal; Start 08/01/16 at 16:00 Alprazolam (Xanax) 0.25 mg PRN TID PRN PO nerves; Start 08/01/16 at 16:00 Acetaminophen/ Hydrocodone Bitart (Lortab 5/325) 1 tab PRN QID PRN PO pain Last administered on 08/02/16 20:43; Start 08/01/16 at 16:00 Morphine Sulfate 2 mg PRN Q2HRS PRN IV pain; Start 08/01/16 at 16:00 Zolpidem Tartrate (Ambien) 5 mg PRN QHS PRN PO INSOMNIA Last administered on 22:50; Start 08/01/16 at 16:00 Ondansetron HCl (Zofran) 4 mg PRN Q6HRS PRN IV NAUSEA/VOMITING 1ST CHOICE Last administered on 08/02/16 08:55; Start 08/01/16 at 16:00 Lorazepam (Ativan) 2 mg PRN Q4HRS PRN IV ANXIETY / AGITATION Last administered on 08/02/16 14:19; Start 08/01/16 at 16:15; Stop 08/02/16 at 15:55; Status DC Citalopram Hydrobromide (Celexa) 20 mg DAILY PO Last administered on 08/03/16 08:51; Start 08/02/16 at 09:00 Nicotine (Nicoderm Cq 21mg) 1 patch DAILY TD Last administered on 08/03/16 08: 51; Start 08/01/16 at 16:30 Oxycodone/ Acetaminophen 1 tab 1 tab PRN Q4HRS PRN PO pain Last administered on 08/03/16 11:59; Start 08/01/16 at 16:30 Promethazine HCl/ Sodium Chloride (Phenergan/Iv Sodium Chloride 0.9% 50ml) 50.25 ml @ 150.75 mls/ hr PRN Q6HRS PRN IV NAUSEA/VOMITING; Start 08/01/16 at 16:30 Influenza Virus Vaccine Quadrival (Fluarix Quad [id number] Syringe) 0.5 ml ONCE ONCE VAX IM Last administered on 08/03/16 08:54; Start 08/01/16 at 20:00; Stop 08/01/16 at 20:01; Status DC Lidocaine (Lidoderm) 1 patch DAILY TD Last administered on 08/03/16 08:49; Start 08/02/16 at 15:00 Diclofenac Sodium (Voltaren) 1 maria DAILY TP ; Start 08/03/16 at 09:00; Stop at 09:00; Status DC Lorazepam (Ativan) 1 mg BID PO Last administered on 08/03/16 08:50; Start at 21:00 Lorazepam (Ativan) 2 mg PRN Q1HR PRN IV For CIWA 8-14 Last administered on 08/03 14:26; Start 08/02/16 at 14:15 Lorazepam (Ativan) 4 mg PRN Q1HR PRN IV For CIWA 15 or greater; Start 08/02/16 at 14:15 Diclofenac Sodium (Voltaren) 1 maria DAILY TP ; Start 08/03/16 at 09:00; Stop at 09:00; Status DC Quetiapine Fumarate (SEROquel) 50 mg QHS PO ; Start 08/03/16 at 21:00 Active Scripts Active Reported Seroquel (Quetiapine Fumarate) 50 Mg Tablet 1 Tab PO QHS No Known Medications Prior To Admisstion (Info) Each 1 Each Vitals/I & O Vital Sign - Last 24 Hours 08/02/16 08/02/16 08/02/16 08/02/16 19:00 20:43 21:56 23:00 Temp 97.5 97.5 97.5 97.5 Pulse 73 76 Resp 16 16 20 16 B/P 118/84 121/83 Pulse Ox 95 95 O2 Delivery Room Air Room Air Room Air Room Air 08/03/16 08/03/16 08/03/16 08/03/16 03:00 07:00 11:00 15:00 Temp 97.6 97.5 97.7 97.7 97.6 97.5 97.7 97.7 Pulse 75 71 94 81 Resp 18 18 18 18 B/P 121/80 130/76 125/86 113/78 Pulse Ox 96 93 96 95 O2 Delivery Room Air Room Air Room Air Room Air Intake and Output 08/02/16 08/02/16 08/03/16 15:00 23:00 07:00 Intake Total 720 ml 450 ml 500 ml Output Total 300 ml 1850 ml Balance 420 ml -1400 ml 500 ml CHEYANNE GR MD Aug 03, 2016 16:23
[2016-08-03 20:00] VITALS: BP 127/83
[2016-08-03] MEDS: QUEtiapine 25 MG TABLET. PO SCH (21:17)
[2016-08-03 23:22] VITALS: BP 116/71
[2016-08-04 03:31] VITALS: BP 117/64
[2016-08-04 07:00] VITALS: BP 99/66
[2016-08-04] MEDS: NICOTINE 21MG PATCH. TD SCH (08:33)
[2016-08-04] MEDS: MVI, ADULT NO.4 WITH VIT K 10 ML, FOLIC ACID 1 MG, THIAMINE 100 MG in IV DEXTROSE 5 %-0... IV SCH ×4 (08:33)
[2016-08-04] MEDS: CITALOPRAM 20 MG TABLET. PO SCH (08:34)
[2016-08-04] MEDS: LORAZEPAM 1 MG TABLET. PO SCH ×2 (08:34→21:11)
[2016-08-04] MEDS: LIDOCAINE (700MG/PATCH) PATCH. TD SCH (08:34)
[2016-08-04 11:00] VITALS: BP 122/83
[2016-08-04] MEDS: LORAZEPAM 2 MG/ML VIAL IV PRN (11:26)
[2016-08-04] MEDS ORDERED: ALPRAZOLAM 0.25 MG TABLET PO PRN (14:45)
--- NOTE | 2016-08-04 14:47 | PDOC ---
PROGRESS NOTES Chief Complaint Chief Complaint 1. Alcohol Intoxication on admit 2. SZ sec to etoh withdrawal vs consumption 3. EtOH withdrawl delirium 4 Bipolar and Schizophremia 5. Back pain 6. I now suspect homelessness or other social problem History of Present Illness History of Present Illness complains of back pain and anxiety, no distress today still is tremulous and he reports some confusion, feels "foggy" has asterixis still, does not feel steady to walk or DC Vitals Vitals Vital Signs Date Time Temp Pulse Resp B/P Pulse Ox O2 Delivery O2 Flow Rate FiO2 08/04/16 11:00 98.2 93 16 122/83 98 Room Air 98.2 Physical Exam Physical Exam asterixis General: Alert, Oriented X3, Cooperative, No acute distress Heart: Regular rate, No murmurs Abdomen: Normal bowel sounds, Soft, No tenderness, No hepatosplenomegaly, No masses Extremities: No clubbing, No cyanosis, No edema, Normal pulses, No tenderness/ swelling Skin: No rashes, No breakdown, No significant lesion Review of Systems Review of Systems confusion, weakness, tremor Assessment and Plan Assessmemt and Plan PT eval cont ativan stop banana bags, now s/p 4 Problems Medical Problems: (1) ETOH abuse Status: Acute (2) Seizure Status: Acute Problems: Comment Review of Relevant I have reviewed the following items buster (where applicable) has been applied. Medications Current Medications Sodium Chloride 1,000 ml @ 1,000 mls/hr 1X ONCE IV Last administered on 11:28; Start 08/01/16 at 11:00; Stop 08/01/16 at 11:59; Status DC Sodium Chloride 1,000 ml @ 1,000 mls/hr 1X ONCE IV Last administered on 12:45; Start 08/01/16 at 12:15; Stop 08/01/16 at 13:14; Status DC Multivitamins/ Minerals/Folic Acid/Thiamine HCl/ Dextrose/Sodium Chloride ( Infuvite Adult/ Iv D5% - 1/2 NS) 1,011.2 ml @ 100 mls/ hr DAILY IV Last administered on 08/04/16 08:33; Start 08/01/16 at 17:00 Chlordiazepoxide (Librium) 25 mg PRN QID PRN PO etoh withdraal; Start 08/01/16 at 16:00 Alprazolam (Xanax) 0.25 mg PRN TID PRN PO nerves; Start 08/01/16 at 16:00 Acetaminophen/ Hydrocodone Bitart (Lortab 5/325) 1 tab PRN QID PRN PO pain Last administered on 08/02/16 20:43; Start 08/01/16 at 16:00 Morphine Sulfate 2 mg PRN Q2HRS PRN IV pain; Start 08/01/16 at 16:00 Zolpidem Tartrate (Ambien) 5 mg PRN QHS PRN PO INSOMNIA Last administered on 22:50; Start 08/01/16 at 16:00 Ondansetron HCl (Zofran) 4 mg PRN Q6HRS PRN IV NAUSEA/VOMITING 1ST CHOICE Last administered on 08/02/16 08:55; Start 08/01/16 at 16:00 Lorazepam (Ativan) 2 mg PRN Q4HRS PRN IV ANXIETY / AGITATION Last administered on 08/02/16 14:19; Start 08/01/16 at 16:15; Stop 08/02/16 at 15:55; Status DC Citalopram Hydrobromide (Celexa) 20 mg DAILY PO Last administered on 08/04/16 08:34; Start 08/02/16 at 09:00 Nicotine (Nicoderm Cq 21mg) 1 patch DAILY TD Last administered on 08/04/16 08: 33; Start 08/01/16 at 16:30 Oxycodone/ Acetaminophen 1 tab 1 tab PRN Q4HRS PRN PO pain Last administered on 08/03/16 20:05; Start 08/01/16 at 16:30 Promethazine HCl/ Sodium Chloride (Phenergan/Iv Sodium Chloride 0.9% 50ml) 50.25 ml @ 150.75 mls/ hr PRN Q6HRS PRN IV NAUSEA/VOMITING; Start 08/01/16 at 16:30 Influenza Virus Vaccine Quadrival (Fluarix Quad [id number] Syringe) 0.5 ml ONCE ONCE VAX IM Last administered on 08/03/16 08:54; Start 08/01/16 at 20:00; Stop 08/01/16 at 20:01; Status DC Lidocaine (Lidoderm) 1 patch DAILY TD Last administered on 08/04/16 08:34; Start 08/02/16 at 15:00 Diclofenac Sodium (Voltaren) 1 maria DAILY TP ; Start 08/03/16 at 09:00; Stop at 09:00; Status DC Lorazepam (Ativan) 1 mg BID PO Last administered on 08/04/16 08:34; Start at 21:00 Lorazepam (Ativan) 2 mg PRN Q1HR PRN IV For CIWA 8-14 Last administered on 08/04 11:26; Start 08/02/16 at 14:15 Lorazepam (Ativan) 4 mg PRN Q1HR PRN IV For CIWA 15 or greater; Start 08/02/16 at 14:15 Diclofenac Sodium (Voltaren) 1 maria DAILY TP ; Start 08/03/16 at 09:00; Stop at 09:00; Status DC Quetiapine Fumarate (SEROquel) 50 mg QHS PO Last administered on 08/03/16 21: 17; Start 08/03/16 at 21:00 Active Scripts Active Reported Seroquel (Quetiapine Fumarate) 50 Mg Tablet 1 Tab PO QHS No Known Medications Prior To Admisstion (Info) Each 1 Each Vitals/I & O Vital Sign - Last 24 Hours 08/03/16 08/03/16 08/03/16 08/04/16 15:00 20:00 23:22 03:31 Temp 97.7 97.3 96.6 98.0 97.7 97.3 96.6 98.0 Pulse 81 81 81 59 Resp 18 18 20 18 B/P 113/78 127/83 116/71 117/64 Pulse Ox 95 95 96 95 O2 Delivery Room Air Room Air Room Air Room Air 08/04/16 08/04/16 07:00 11:00 Temp 97.6 98.2 97.6 98.2 Pulse 86 93 Resp 16 16 B/P 99/66 122/83 Pulse Ox 94 98 O2 Delivery Room Air Room Air Intake and Output 08/03/16 08/03/16 08/04/16 15:00 23:00 07:00 Intake Total 1060 ml 200 ml Output Total 1400 ml Balance 1060 ml -1400 ml 200 ml CHEYANNE GR MD Aug 04, 2016 14:47
[2016-08-04 15:00] VITALS: BP 104/63
[2016-08-04] MEDS: OXYCODONE/APAP 10/325 TABLET. PO PRN (15:33)
[2016-08-04] MEDS: HYDROCODONE/APAP 5/325MG TABLET. PO PRN (17:45)
[2016-08-04 19:00] VITALS: BP 96/77
[2016-08-04] MEDS: QUEtiapine 25 MG TABLET. PO SCH (21:11)
[2016-08-04 23:00] VITALS: BP 117/83
[2016-08-05 03:00] VITALS: BP 97/62
[2016-08-05 07:40] VITALS: BP 98/73
[2016-08-05] MEDS: OXYCODONE/APAP 10/325 TABLET. PO PRN (08:04)
[2016-08-05] MEDS: CITALOPRAM 20 MG TABLET. PO SCH (08:04)
[2016-08-05] MEDS: NICOTINE 21MG PATCH. TD SCH (08:04)
[2016-08-05] MEDS: LORAZEPAM 1 MG TABLET. PO SCH (08:04)
[2016-08-05] MEDS: LIDOCAINE (700MG/PATCH) PATCH. TD SCH (08:05)
[2016-08-05 11:04] VITALS: BP 121/75
--- NOTE | 2016-08-05 13:58 | PDOC3 ---
Discharge Summary [facility] Date of Admission: Aug 01, 2016 Discharge Date: Aug 05, 2016 Admitting Diagnosis SZ sec to etoh withdrawal vs consumption 3. EtOH withdrawl delirium 4 Bipolar and Schizophremia 5. Back pain 6. I now suspect homelessness or other social problem Problems: Final Diagnosis 1. SZ sec to etoh withdrawal vs consumption 3. EtOH withdrawl delirium 4 Bipolar and Schizophremia 5. Back pain Brief Hospital Course Mr. Werner is a 51 old M, chronic bipolar with psychiatrist, ETOH abuser, comes for seizure, + ETOH. Pt feels better with benzo, ivf. Pt agrees to see his psych this month. dc home dc time 35min Physical Exam General: Alert, Oriented X3, Cooperative, No acute distress Heart: Regular rate, No murmurs Abdomen: Normal bowel sounds, Soft, No tenderness, No hepatosplenomegaly, No masses Extremities: No clubbing, No cyanosis, No edema, Normal pulses, No tenderness/ swelling Skin: No rashes, No breakdown, No significant lesion Problems: Disposition home CONDITION AT DISCHARGE: Improved Diet regular Scheduled Quetiapine Fumarate (Seroquel) 1 TAB PO QHS (Reported) Miscellaneous Medications Info (No Known Medications Prior To Admisstion) 1 EACH (Reported) Follow Up pcp and psych in 2 weeks SCOTT RUVALCABA MD Aug 05, 2016 13:58
== END 2016-08-05 13:30 | disposition home or self-care (01) | DRG 896 ==
LOC: ER 10:30 → 5 SOUTH 15:00
PROVIDERS: ADMIT Internal Medicine; ATTEND Internal Medicine
DX: F10.231 Alcohol dependence with withdrawal delirium (principal); G93.41 Metabolic encephalopathy; R56.9 Unspecified convulsions; F20.9 Schizophrenia, unspecified; F31.9 Bipolar disorder, unspecified; F41.9 Anxiety disorder, unspecified; M54.9 Dorsalgia, unspecified; F12.90 Cannabis use, unspecified, uncomplicated; F10.229 Alcohol dependence with intoxication, unspecified; F17.210 Nicotine dependence, cigarettes, uncomplicated; Z82.49 Family history of ischemic heart disease and other diseases of the circulatory system; Z98.890 Other specified postprocedural states; R00.0 Tachycardia, unspecified
CPT/HCPCS: 36415; 80048; 80053; 81001; 82140; 82947; 83605; 84443; 85027; 85610; 85730; 90686; 93005; 96360; 96361; G0378; G0480; G0481; G6038; J2060; J2405; J7030; 80196; 97116; 99285-25